=== PATIENT | male | born 1945 | race Caucasian/White ===

== ENCOUNTER 2021-10-20 16:42 | Inpatient (IN) | payer MEDICARE, OTHER ==
[~2021-10-20] VITALS: Ht 154.9 cm; Wt 72.6 kg
--- NOTE | 2021-10-20 17:15 | NUR ---
TECH AT BEDSIDE FOR EKG
[2021-10-20] MEDS ORDERED: IV NS 0.9% 500 ML BAG IV ONE (17:30)
--- NOTE | 2021-10-20 17:31 | NUR ---
WASH PLANT OPERATOR AT BEDSIDE
--- NOTE | 2021-10-20 17:35 | NUR ---
PT TAKEN TO RADIOLOGY FOR CT
[2021-10-20 17:44] LABS: BASOPHILS % (AUTO) 0.5 % (0.0-2.0); EOSINOPHILS % (AUTO) 0.7 % (0.0-6.0); HEMATOCRIT 23 % (39-51); LYMPHOCYTES # (AUTO) 0.6 K/uL (0.8-4.8); LYMPHOCYTES % (AUTO) 6.7 % (20.0-44.0); MEAN CORPUSCULAR HGB CONC 35 g/dl (31.0-36.0); MEAN CORPUSCULAR VOLUME 94 fL (80-96); MONOCYTES # (AUTO) 0.7 K/uL (0.1-1.30); MONOCYTES % (AUTO) 7.9 % (2.0-12.0); NEUTROPHILS # (AUTO) 7.4 K/uL (1.8-8.9); NEUTROPHILS % (AUTO) 84.2 % (43.0-81.0); PLATELET COUNT (AUTO) 202 K/uL (150-450); RED BLOOD CELL COUNT(AUTO) 2.41 MIL/uL (4.5-6.0); WHITE BLOOD COUNT (AUTO) 8.8 K/uL (4.3-11.0)
[2021-10-20 18:19] LABS: CALCIUM, SERUM 8.2 mg/dL (8.5-10.1); CARBON DIOXIDE 26 mmol/L (21-32); CHLORIDE 107 mmol/L (98-107); CREATININE 1.6 mg/dL (0.6-1.3); GLUCOSE 104 mg/dL (74-106); POTASSIUM 3.8 mmol/L (3.5-5.1); SODIUM SERUM 140 mmol/L (136-145); UREA NITROGEN, BLOOD 31 mg/dL (7-18)
[2021-10-20 18:32] LABS: ALANINE AMINOTRANSFERASE 18 U/L (12-78); ALBUMIN 3.5 g/dL (3.4-5.0); ALKALINE PHOSPHATASE 71 U/L (46-116); ASPARTATE AMINOTRANSFERASE 23 U/L (15-37); BILIRUBIN,DIRECT 0.1 mg/dL (0.0-0.2); BILIRUBIN,TOTAL 0.4 mg/dL (0.2-1.0); TOTAL PROTEIN, SERUM 6.3 g/dL (6.4-8.2)
[2021-10-20] MEDS ORDERED: TERA5CAP7 PO (18:38)
[2021-10-20] MEDS ORDERED: NIFE90TA61 PO (18:38)
[2021-10-20] MEDS ORDERED: ATEN100T PO (18:38)
[2021-10-20] MEDS ORDERED: RIVA10TA PO (18:38)
[2021-10-20] MEDS ORDERED: BENA40TA8 PO (18:38)
[2021-10-20] MEDS ORDERED: DOLU1TAB PO (18:38)
[2021-10-20] MEDS ORDERED: HYDR25TA4 PO (18:38)
[2021-10-20] MEDS ORDERED: ATOR40TA PO (18:38)
[2021-10-20] MEDS ORDERED: VALA500T40 PO (18:38)
[2021-10-20] MEDS ORDERED: POTA20TA83 PO (18:38)
[2021-10-20] MEDS ORDERED: ASPI-1420 PO (18:40)
--- NOTE | 2021-10-20 20:31 | NUR ---
BED 308-2 TELE
--- NOTE | 2021-10-20 20:41 | NUR ---
REPORT GIVEN TO GOPAL NOEL
--- NOTE | 2021-10-20 20:50 | NUR ---
PATIENT TRANSFERRED UNDER ACLS
[2021-10-20 21:30] VITALS: BP 123/53
[2021-10-20] MEDS ORDERED: TEMAZEPAM 15 MG CAPSULE PO PRN (21:30)
[2021-10-20] MEDS ORDERED: HYDROCODONE/APAP 5/325MG TABLET PO PRN (21:30)
[2021-10-20] MEDS ORDERED: ACETAMINOPHEN 325 MG TABLET PO PRN (21:30)
--- NOTE | 2021-10-20 21:30 | NUR ---
AUTOCAD DESIGNER OPENING NOTES RECEIVED PATIENT FROM ER VIA GURNEY WITH DX OF POSSIBLE CVA VS TIA; PATIENT IS AMBULATORY, A/O X3. NOT IN APPARENT DISTRESS. BREATHING IS EVEN AND NONLABORED. ON ROOM AIR; TOLERATING WELL. DENIES ANY PAIN OR DISCOMFORT AT THIS TIME. VS TAKEN AND RECORDED: BP-123/53, CO-72, RR-18, TEMP-97.9, O2 SAT-93%. WITH IV ACCESS ON RIGHT AC G#18; PATENT, INTACT AND FLUSHES WELL. ON TELEMETRY MONITORING WITH CURRENT READING OF SINUS RHYTHM WITH 1ST DEGREE AV BLOCK AND BBB. ALL BELONGINGS ACCOUNTED FOR. ALL NEEDS ANTICIPATED. SAFETY MEASURES IMPLEMENTED: CALL LIGHT AND TABLE WITHIN EASY REACH, SIDE RAILS UP X2, BED IN LOWEST LOCKED POSITION. WILL CONTINUE TO MONITOR
[2021-10-20] MEDS: TERAZOSIN HCL 5 MG CAPSULE PO SCH (22:00)
[2021-10-20 22:14] LABS: THYROID STIMULATING HORMONE 1.405 uIU/mL (0.358-3.74)
[2021-10-21] VITALS: BP_SYST 119; BP_SYST 63; BP_DIAS 48; BP_DIAS 75
[2021-10-21] MEDS: IV NS 0.9% 1,000 ML IV PRN ×2 (00:02→20:15)
--- NOTE | 2021-10-21 00:15 | NUR ---
RN NOTE BP OF 119/48; NOTIFIED KIMMY CANDELARIA AND MADE AWARE; NO NEW ORDER MADE.
[2021-10-21 03:53] VITALS: BP 121/50
[2021-10-21 06:41] LABS: BASOPHILS % (AUTO) 0.7 % (0.0-2.0); EOSINOPHILS % (AUTO) 2.4 % (0.0-6.0); HEMATOCRIT 22 % (39-51); HEMOGLOBIN 7.6 g/dL (13.5-17.5); LYMPHOCYTES # (AUTO) 0.8 K/uL (0.8-4.8); LYMPHOCYTES % (AUTO) 15.4 % (20.0-44.0); MEAN CORPUSCULAR HGB CONC 35 g/dl (31.0-36.0); MEAN CORPUSCULAR VOLUME 95 fL (80-96); MONOCYTES # (AUTO) 0.5 K/uL (0.1-1.30); MONOCYTES % (AUTO) 8.8 % (2.0-12.0); NEUTROPHILS % (AUTO) 72.7 % (43.0-81.0); PLATELET COUNT (AUTO) 189 K/uL (150-450); RED BLOOD CELL COUNT(AUTO) 2.31 MIL/uL (4.5-6.0); WHITE BLOOD COUNT (AUTO) 5.5 K/uL (4.3-11.0)
[2021-10-21 07:10] LABS: CALCIUM, SERUM 8.3 mg/dL (8.5-10.1); CARBON DIOXIDE 24 mmol/L (21-32); CHLORIDE 107 mmol/L (98-107); CREATININE 1.4 mg/dL (0.6-1.3); GLUCOSE 112 mg/dL (74-106); POTASSIUM 3.6 mmol/L (3.5-5.1); SODIUM SERUM 141 mmol/L (136-145); UREA NITROGEN, BLOOD 24 mg/dL (7-18)
--- NOTE | 2021-10-21 07:10 | NUR ---
BREAD STACKER CLOSING NOTES PATIENT IS AWAKE, A/O X3. IN NO ACUTE DISTRESS NOTED. BREATHING EVENLY AND NONLABORED. ON ROOM AIR; TOLERATING WELL. DENIES ANY PAIN OR DISCOMFORT AT THIS TIME. WITH IV ACCESS ON RIGHT AC G#18; PATENT, INTACT INFUSING WITH NS REGULATED AT 50 ML/HR; FLUSHES WELL. ON TELEMETRY MONITORING WITH CURRENT READING OF SINUS RHYTHM WITH 1ST DEGREE AV BLOCK AND BBB. SAFETY MEASURES IN PLACE. ENDORSED TO MORNING SHIFT FOR INDRA
[2021-10-21 07:12] LABS: CHOLESTEROL 93 mg/dL (<200); HDL CHOLESTEROL 40 mg/dL (40-60); LDL 35 mg/dL (0-99); TRIGLYCERIDES 110 mg/dL (30-150)
--- NOTE | 2021-10-21 07:30 | NUR ---
RECEIVED PT. IN AM ALERT AND ORIENTED X3,FORGETFUL,DENIES ANY SYMPTOMS AT THIS KOREY.
[2021-10-21 08:00] VITALS: BP 129/55
[2021-10-21 08:17] LABS: IRON, SERUM 16 ug/dl (50-175); TOTAL IRON BINDING CAPACITY 330 ug/dl (250-450)
[2021-10-21 09:14] LABS: FERRITIN 13 ng/mL (8-388)
[2021-10-21] MEDS: NIFEdipine XL (30MG) 30 MG TAB PO SCH (09:30)
[2021-10-21] MEDS: PANTOPRAZOLE 40 MG TABLET.DR PO SCH (09:31)
[2021-10-21] MEDS: ASPIRIN EC 81 MG TABLET.DR PO SCH (09:31)
[2021-10-21] MEDS: VALACYCLOVIR HCL 500 MG TABLET PO SCH ×2 (09:31→17:50)
[2021-10-21] MEDS: ATORVASTATIN 40 MG TABLET PO SCH (09:31)
--- NOTE | 2021-10-21 09:37 | NUR ---
SS consult requested for code stroke. SW will follow up at a later time.
--- NOTE | 2021-10-21 11:00 | NUR ---
DR. RUST,DR. GANN, IN TO SEE PT.MULTIPLE TESTS ORDERED FOR TODAY.
--- NOTE | 2021-10-21 11:06 | NUR ---
SS Note: SS received consult for stroke. Pt. Is a 75-year-old male who demonstrates adequate insight to the reason for hospitalization. [place] for altered mental status. Pt. was oriented x3, alert, and cooperative. During interview, pt. was capable of following directions and appeared groomed. Pt.s speech was at a normal rate and pt.s mood was elevated. Pt. reported no hx of mental health, substance abuse, suicidal ideation, or homicidal ideation. Pt. denies auditory hallucinations, visual hallucinations, paranoia, or delusions. SW explored pt.s living situation. Per pt., he lives alone [[address] [place] [address]], pt. was able to confirm address. Per pt., he does not have a hx of stroke, but he tends to feel weakness in his legs. SW explored pt.s financial status. Per pt., he is currently not working and receives SSI. Pt. stated that he can ambulate and is independent with his ADLs. Plan: SW provided available resources and pt. accepted. Upon discharge, per pt., he will return home [[address] [place] [address]]. SW access pt. with the PHQ9 and he scored a 2. There is no need for a psych consult. Resources Provided: Stroke Empowerment Packet.
[2021-10-21 12:00] VITALS: BP 117/90
--- NOTE | 2021-10-21 13:33 | NUR ---
iv leaking,removed and restarted in rt. hand.
[2021-10-21] MEDS: ATENOLOL 50 MG TABLET PO SCH (15:55)
[2021-10-21 16:00] VITALS: BP 128/59
[2021-10-21] MEDS: BENAZEPRIL HCL 20 MG TABLET PO SCH (16:40)
[2021-10-21] MEDS: RIVAROXABAN 10 MG TABLET PO SCH (17:50)
--- NOTE | 2021-10-21 18:18 | NUR ---
PUMP STOCKINGS APPLIED.
--- NOTE | 2021-10-21 19:30 | NUR ---
SINGLE STROKE PREFORMER OPENING NOTE RECEIVED PT IN BED, AWAKE, A/0 X 3. ABLE TO MAKE NEEDS KNOWN. CURRENTLY ON RA, TOLERATING WELL WITH NO S/SX OF ACUTE DISTRESS NOTED AT THIS TIME. NO C/O PAIN AT THIS TIME. IV ACCESS NOTED IN R HAND, #22G INFUSING NS @ 100 CC/HR. NO SIGNS OF INFILTRATION NOTED. KEPT HOB ELEVATED. ALL SAFETY MEASURES IN PLACE: BED LOCKED IN LOW POSITION, CALL LIGHT WITHIN REACH. WILL CONTINUE TO MONITOR THE PT.
[2021-10-21 20:00] VITALS: BP 124/51
--- NOTE | 2021-10-21 20:05 | NUR ---
RN NOTE CHECKED PT AND IV PUMP IS BEEPING. IVF DONE. HUNG NEW NS @ 100 CC/HR.
[2021-10-21] MEDS: TERAZOSIN HCL 5 MG CAPSULE PO SCH (21:09)
--- NOTE | 2021-10-21 22:55 | NUR ---
RN NOTE FOUND PT PULLED OUT HIS IV LINE. REPLACED IMMEDIATELY NEW IV ACCESS AT RFA #22G, FLUSHES WELL. INTACT AND PATENT.
[2021-10-22] VITALS: BP_SYST 100; BP_SYST 122; BP_DIAS 46; BP_DIAS 56
--- NOTE | 2021-10-22 03:41 | NUR ---
RN NOTE TURNED AND REPOSITIONED PT. CHANGED LINENS AND GOWN. PM CARE DONE. NEEDS ATTENDED.
[2021-10-22 04:00] VITALS: BP 122/56
--- NOTE | 2021-10-22 06:17 | NUR ---
RN NOTE PT RESTING IN BED COMFORTABLY. NO SIGNS OF DISTRESS. PT REMAINED STABLE THROUGHOUT THE NIGHT. WILL ENDORSE TO AM SHIFT NURSE FOR INDRA.
[2021-10-22 06:54] LABS: ALBUMIN 3.3 g/dL (3.4-5.0); BILIRUBIN,TOTAL 0.6 mg/dL (0.2-1.0); CALCIUM, SERUM 8.1 mg/dL (8.5-10.1); CREATININE 1.2 mg/dL (0.6-1.3); MAGNESIUM 2.2 mg/dL (1.8-2.4); PHOSPHORUS 3.2 mg/dL (2.5-4.9); POTASSIUM 3.7 mmol/L (3.5-5.1); TOTAL PROTEIN, SERUM 6.1 g/dL (6.4-8.2)
[2021-10-22] MEDS: IV NS 0.9% 1,000 ML IV PRN (07:11)
[2021-10-22 07:12] LABS: BASOPHILS % (AUTO) 0.9 % (0.0-2.0); EOSINOPHILS % (AUTO) 3.5 % (0.0-6.0); HEMATOCRIT 21 % (39-51); HEMOGLOBIN 7.3 g/dL (13.5-17.5); LYMPHOCYTES # (AUTO) 0.8 K/uL (0.8-4.8); LYMPHOCYTES % (AUTO) 17.6 % (20.0-44.0); MEAN CORPUSCULAR HGB CONC 35 g/dl (31.0-36.0); MEAN CORPUSCULAR VOLUME 94 fL (80-96); MONOCYTES # (AUTO) 0.4 K/uL (0.1-1.30); NEUTROPHILS # (AUTO) 3.1 K/uL (1.8-8.9); PLATELET COUNT (AUTO) 177 K/uL (150-450); RED BLOOD CELL COUNT(AUTO) 2.27 MIL/uL (4.5-6.0); WHITE BLOOD COUNT (AUTO) 4.5 K/uL (4.3-11.0)
[2021-10-22] MEDS: PANTOPRAZOLE 40 MG TABLET.DR PO SCH (07:32)
--- NOTE | 2021-10-22 07:33 | NUR ---
ETHNOLOGY TEACHER OPENING NOTE RECEIVED PT IN BED, AWAKE, A/0 X 3. ABLE TO MAKE NEEDS KNOWN. NO SOB OR CARDIAC DISTRESS NOTED, AFEBRILE. PATIENT ON ROOM AIR AND TOLERATING WELL. DENIES ANY PAIN AT THIS TIME.ON RIGGING AND CONTROLS AIRCRAFT MECHANIC WITH CURRENT READING OF SINUS SURINDER 1ST DEGREE AV BLOCK N@56 BPM. IV ACCESS NOTED IN RFA #20G INFUSING NS @ 100 CC/HR. NO SIGNS OF INFILTRATION NOTED. KEPT HOB ELEVATED. SAFETY MEASURES IN PLACE: BED LOCKED IN LOW POSITION, CALL LIGHT WITHIN REACH. WILL CONTINUE TO MONITOR THE PT.
[2021-10-22 08:00] VITALS: BP_SYST 128; BP_DIAS 44; BP_DIAS 59
--- NOTE | 2021-10-22 08:40 | NUR ---
RN NOTES: PATIENT FOR CT ANGIOGRAM WITH 3 D IMAGE. PATIENT STABLE TRANSFERRED VIA WHEELCHAIR WITH RADIOLOGY STAFF
[2021-10-22] MEDS: ASPIRIN EC 81 MG TABLET.DR PO SCH (08:57)
[2021-10-22] MEDS: VALACYCLOVIR HCL 500 MG TABLET PO SCH ×2 (08:57→17:16)
[2021-10-22] MEDS: NIFEdipine XL (30MG) 30 MG TAB PO SCH (08:58)
[2021-10-22] MEDS: BENAZEPRIL HCL 20 MG TABLET PO SCH (08:58)
[2021-10-22] MEDS: ATORVASTATIN 40 MG TABLET PO SCH (08:59)
[2021-10-22] MEDS: ATENOLOL 50 MG TABLET PO SCH (08:59)
[2021-10-22] MEDS ORDERED: METOPROLOL TARTRATE INJ 5 MG/5 ML AMPUL ONE ×2 (09:14→09:35)
[2021-10-22] MEDS ORDERED: NITROGLYCERIN 0.4 MG/TAB BOTTLE ONE (09:14)
[2021-10-22] MEDS: METOPROLOL TARTRATE INJ 5 MG/5 ML AMPUL IVP PRN ×4 (09:21→09:36)
[2021-10-22] MEDS ORDERED: IV NS 0.9% 250 ML IV ONE (09:25)
[2021-10-22] MEDS ORDERED: CT SWABBABLE VALVE TRANS SET 1 EA INFUS.SET MC ONE (09:25)
[2021-10-22] MEDS ORDERED: IOHEXOL-350 100 ML VIAL IV ONE (09:25)
[2021-10-22] MEDS ORDERED: methylPREDNISolone SOD SUCC 125 MG/2ML VIAL ONE (09:25)
[2021-10-22] MEDS ORDERED: NITROGLYCERIN 0.4 MG/TAB BOTTLE SL PRN (09:30)
--- NOTE | 2021-10-22 10:30 | NUR ---
RN NOTES: S/P CT ANGIOGRAM 3D IMAGE. PATIENT STABLE.
[2021-10-22 12:00] VITALS: BP 113/45
[2021-10-22] MEDS: SOD FERRIC GLUC 125 MG in IV NS 0.9% 100 ML IV SCH (13:49)
--- NOTE | 2021-10-22 15:47 | NUR ---
COIN DEALER OPENING NOTE RECEIVED PT IN BED, AWAKE, A/0 X 3. ABLE TO MAKE NEEDS KNOWN. NO SOB OR CARDIAC DISTRESS NOTED, AFEBRILE. PATIENT ON ROOM AIR AND TOLERATING WELL. DENIES ANY PAIN AT THIS TIME. IV ACCESS NOTED IN RFA #20G INFUSING NS @ 100 CC/HR. NO SIGNS OF INFILTRATION NOTED. KEPT HOB ELEVATED. SAFETY MEASURES IN PLACE: BED LOCKED IN LOW POSITION, CALL LIGHT WITHIN REACH. WILL CONTINUE TO MONITOR THE PT. Addendum: 10/22/21 at 1556 by CHARLES DAVE RN ERROR
[2021-10-22 16:00] VITALS: BP_SYST 113; BP_SYST 132; BP_DIAS 45; BP_DIAS 51
[2021-10-22] MEDS: RIVAROXABAN 10 MG TABLET PO SCH (17:18)
--- NOTE | 2021-10-22 18:48 | NUR ---
WIRING MECHANIC OPENING NOTE PATIENT IN BED, AWAKE, A/0 X 3. ABLE TO MAKE NEEDS KNOWN. NO SOB OR CARDIAC DISTRESS NOTED, AFEBRILE. PATIENT ON ROOM AIR AND TOLERATING WELL. DENIES ANY PAIN AT THIS TIME.ON POWER HOUSE CONTROL ROOM OPERATOR WITH CURRENT READING OF SINUS RHYTHM @70 BPM. IV ACCESS NOTED IN RAC G#18 INFUSING NS @ 100 CC/HR. NO SIGNS OF INFILTRATION NOTED. KEPT HOB ELEVATED. SAFETY MEASURES IN PLACE: BED LOCKED IN LOW POSITION, CALL LIGHT WITHIN REACH. WILL CONTINUE TO MONITOR THE PT. ENDORSED TO HOGSHEAD STRIPPER NURSE FOR INDRA.
--- NOTE | 2021-10-22 19:40 | NUR ---
COLLEGE PRESIDENT NOTES RECEIVED LAYING ON BED,A/O X3,CALM AND QUIET,PRESENT IVF NS AT 100ML/HR RATE INFUSING ON RIGHT AC SALINE LOCK VIA IV PUMP.DENIES DISCOMFORTS AT THE MOMENT,CALL LIGHT IN REACH,NEEDS ANTICIPATED.
[2021-10-22 20:00] VITALS: BP 118/45
--- NOTE | 2021-10-22 20:00 | NUR ---
AUDIENCE DEVELOPMENT MANAGER NOTES SR WITH 1ST DEGREE AV BLOCK,RATE OF 65
[2021-10-22] MEDS: TERAZOSIN HCL 5 MG CAPSULE PO SCH (21:44)
[2021-10-23] VITALS (12 sets, daily range): BP systolic 112–135; BP diastolic 49–62
--- NOTE | 2021-10-23 06:15 | NUR ---
ENTRY OPERATOR NOTES ACCIDENTALLY PULLED OUT SALINE LOCK RIGHT AC.NEW SALINE LOCK PLACE ON RIGHT FOREARM #22,SAME IVF NS AT 100ML/HR RATE RESTARTED.
[2021-10-23] MEDS: IV NS 0.9% 1,000 ML IV PRN (06:24)
--- NOTE | 2021-10-23 06:52 | NUR ---
LOG CARRIER OPERATOR NOTES NO SIGNIFICANT CHANGE IN STATUS,SLEPT WELL AT NIGHTNO COMPLAINTS THRU OUT SHIFT.IN NO ACUTE DISTRESS.
[2021-10-23 06:53] LABS: BASOPHILS % (AUTO) 0.4 % (0.0-2.0); EOSINOPHILS % (AUTO) 3.8 % (0.0-6.0); LYMPHOCYTES # (AUTO) 0.7 K/uL (0.8-4.8); LYMPHOCYTES % (AUTO) 15.9 % (20.0-44.0); MEAN CORPUSCULAR HGB CONC 35 g/dl (31.0-36.0); MEAN CORPUSCULAR VOLUME 92 fL (80-96); MONOCYTES # (AUTO) 0.4 K/uL (0.1-1.30); MONOCYTES % (AUTO) 9.3 % (2.0-12.0); NEUTROPHILS % (AUTO) 70.6 % (43.0-81.0); PLATELET COUNT (AUTO) 182 K/uL (150-450); RED BLOOD CELL COUNT(AUTO) 2.17 MIL/uL (4.5-6.0); WHITE BLOOD COUNT (AUTO) 4.3 K/uL (4.3-11.0)
--- NOTE | 2021-10-23 07:00 | NUR ---
FLORICULTURE TEACHER OPENING NOTE PATIENT LAYING IN BED, A/O X 3, ABLE TO MAKE NEEDS KNOWN. TOLERATING WELL ON ROOM AIR WITH NO S/S RESPIRATORY DISTRESS. NO COMPLAINTS OF PAIN OR DISCOMFORT AT THIS TIME. TELE MONITOR IN PLACE READING SR 58. R HAND # 18 G SL CLEAN, INTACT, AND INFUSING NS @ 100 ML/HR. SAFETY MEASURES IN PLACE: BED IN LOWEST LOCKED POSITION, SIDE RAILS UP X 2, CALL LIGHT WITHIN REACH. WILL CONTINUE TO MONITOR.
[2021-10-23 07:17] LABS: HEMATOCRIT 20 % (39-51); HEMOGLOBIN 6.9 g/dL (13.5-17.5)
[2021-10-23 07:40] LABS: CALCIUM, SERUM 8.1 mg/dL (8.5-10.1); CREATININE 1.2 mg/dL (0.6-1.3); POTASSIUM 3.4 mmol/L (3.5-5.1)
[2021-10-23] MEDS: PANTOPRAZOLE 40 MG TABLET.DR PO SCH (07:49)
[2021-10-23 09:15] LABS: EOSINOPHILS % (MANUAL) 3 % (0-4); LYMPHOCYTES % (MANUAL) 13 % (16-48); METAMYELOCYTES % 2 % (0-0); MONOCYTES % (MANUAL) 8 % (0-11.0); MYELOCYTES % 1 % (0-0); NEUTROPHILS % (MANUAL) 73 (42-76)
[2021-10-23] MEDS: BENAZEPRIL HCL 20 MG TABLET PO SCH (09:19)
[2021-10-23] MEDS: ATORVASTATIN 40 MG TABLET PO SCH (09:19)
[2021-10-23] MEDS: NIFEdipine XL (30MG) 30 MG TAB PO SCH (09:20)
[2021-10-23] MEDS: ASPIRIN EC 81 MG TABLET.DR PO SCH (09:20)
[2021-10-23] MEDS: VALACYCLOVIR HCL 500 MG TABLET PO SCH ×2 (09:20→16:38)
[2021-10-23] MEDS: ATENOLOL 50 MG TABLET PO SCH (09:21)
[2021-10-23] MEDS ORDERED: POTASSIUM CHLORIDE 20 MEQ TAB.PRT.SR PO SCH (10:00)
[2021-10-23] MEDS: SOD FERRIC GLUC 125 MG in IV NS 0.9% 100 ML IV SCH (15:34)
[2021-10-23] MEDS: RIVAROXABAN 10 MG TABLET PO SCH (18:06)
--- NOTE | 2021-10-23 19:20 | NUR ---
MS PATTERN DESIGNER NOTE PATIENT MADE AWARE OF MD DISCHARGE ORDERS AND INSTRUCTIONS. PATIENT VERBALIZED UNDERSTANDING OF MD DISCHARGE INSTRUCTIONS AND SIGNED MD DISCHARGE INSTRUCTIONS FORM. PATIENT VERBALIZED POSSESSION OF ALL BELONGINGS, EXCEPT FOR HIS WHITE UNDERSHIRT, AND SIGNED BELONGINGS FORM. IV LINES AND ID BANDS REMOVED. PATIENT TRANSFERRED TO CARE OF 2 VEGETABLE SCULLION AND WAS TRANSPORTED OFF OF UNIT VIA GURNEY EN ROUTE TO PRIVATE RESIDENCE. ALL SIGNATURES OBTAINED AND COPIES OF PAPERWORK PROVIDED. PATIENT STABLE AT TIME OF DISCHARGE. Addendum: 10/23/21 at 1927 by SORAYA CARRASCO RN 1 UNIT pRBCs INFUSED TODAY PER MD ORDER, PATIENT TOLERATED INFUSION WELL WITH NO SIDE EFFECTS, VITAL SIGNS OBTAINED DURING INFUSION PER PROTOCOL AND REMAINED WNL.
== END 2021-10-23 19:20 | disposition home or self-care (01) | DRG 640 ==
LOC: ER 16:45 → TELE 20:33 → MED 10-23 10:01
PROVIDERS: ADMIT Nurse Practitioner Acute Care; ATTEND Internal Medicine
PROC: 30233N1 Transfusion of Nonautologous Red Blood Cells into Peripheral Vein, Percutaneous Approach (ICD-10-PCS; principal; 2021-10-23)
DX: E86.0 Dehydration (principal); G93.41 Metabolic encephalopathy; N17.0 Acute kidney failure with tubular necrosis; I48.0 Paroxysmal atrial fibrillation; I49.9 Cardiac arrhythmia, unspecified; Z86.73 Personal history of transient ischemic attack (TIA), and cerebral infarction without residual deficits; D63.8 Anemia in other chronic diseases classified elsewhere; E78.5 Hyperlipidemia, unspecified; G93.89 Other specified disorders of brain; I12.9 Hypertensive chronic kidney disease with stage 1 through stage 4 chronic kidney disease, or unspecified chronic kidney disease; N18.9 Chronic kidney disease, unspecified; I25.10 Atherosclerotic heart disease of native coronary artery without angina pectoris; Z79.01 Long term (current) use of anticoagulants; N40.0 Benign prostatic hyperplasia without lower urinary tract symptoms; E88.9 Metabolic disorder, unspecified; Z87.74 Personal history of (corrected) congenital malformations of heart and circulatory system; Z20.822 Contact with and (suspected) exposure to COVID-19; Z79.899 Other long term (current) drug therapy; I08.0 Rheumatic disorders of both mitral and aortic valves
CPT/HCPCS: 36415; 70450-TC; 70544-TC; 70551-TC; 71045-TC; 75574; 76770-TC; 80048-TC; 80053-TC; 80061-TC; 80076-TC; 82728-TC; 82962-TC; 83540-TC; 83605-TC; 83735-TC; 83880; 84100-TC; 84443-TC; 84484-TC; 85025-TC; 85652-TC; 85730-TC; 86850-TC; 87040-TC; 87081-TC; 92526; 92611-TC; 93307-TC; 93880-TC; 97116-TC; 97530-TC; 97535-TC; C9803; G0378; J2916; J2930; J3490; J7030; J7040; J7050; P9016; Q9967